=== PATIENT | male | born 1965 | race Caucasian/White ===

== ENCOUNTER 2020-05-20 08:48 | Emergency (ER) | payer BC ==
[2020-05-20] MEDS ORDERED: Metoprolol Tartrate 50 MG Tab PO STA (09:04)
[2020-05-20] MEDS ORDERED: Aspirin 81 MG Tab.Chew PO STA (09:04)
--- NOTE | 2020-05-20 10:03 | EDM.PDOC ---
ED HPI GENERAL MEDICAL PROBLEM - General Chief Complaint: Cardiovascular Problem Stated Complaint: TIGHT CHEST/HIGH HEART RATE Time Seen by Provider: 05/20/20 09:25 Source of Information: Reports: Patient History Limitations: Reports: No Limitations - History of Present Illness INITIAL COMMENTS - FREE TEXT/NARRATIVE: Patient presented to the ED because of palpitations and chest tightness which started this morning while at work. There is no associated headache, dizziness. No nausea,vomiting, dyspnea a or diaphoresis. There is no cough/cold, fever or chills. - Related Data Allergies Allergy/AdvReac Type Severity Reaction Status Date / Time NSAIDS (Non-Steroidal AdvReac Cannot Verified 05/20/20 09:57 Anti-Inflamma Remember Home Meds: Home Meds Furosemide 40 mg PO DAILY PRN 04/25/14 [History] Ibuprofen 200 mg PO ASDIRECTED PRN 04/25/14 [History] Losartan [Cozaar] 50 mg PO DAILY 05/20/20 [History] metFORMIN [Glucophage] 1,000 mg PO BID 05/20/20 [History] ED ROS GENERAL - Review of Systems Review Of Systems: See Below Constitutional: Reports: No Symptoms HEENT: Reports: No Symptoms Respiratory: Reports: No Symptoms Cardiovascular: Reports: Chest Pain Endocrine: Reports: No Symptoms GI/Abdominal: Reports: No Symptoms : Reports: No Symptoms Musculoskeletal: Reports: No Symptoms Skin: Reports: No Symptoms Neurological: Reports: No Symptoms Psychiatric: Reports: No Symptoms ED EXAM, GENERAL - Physical Exam Exam: See Below Exam Limited By: No Limitations General Appearance: Alert, No Apparent Distress Ears: Normal External Exam, Normal Canal Nose: Normal Inspection, Normal Mucosa, No Blood Throat/Mouth: Normal Inspection, Normal Lips, Normal Teeth Head: Atraumatic, Normocephalic Neck: Normal Inspection, Supple, Non-Tender, Full Range of Motion Respiratory/Chest: No Respiratory Distress, Lungs Clear, Normal Breath Sounds, No Accessory Muscle Use, Chest Non-Tender Cardiovascular: Normal Peripheral Pulses, Regular Rate, Rhythm, No Edema, No JVD, No Murmur, No Rub, Tachycardia GI/Abdominal: Normal Bowel Sounds, Soft, Non-Tender, No Organomegaly, No Distention, No Abnormal Bruit, No Mass, Pelvis Stable Back Exam: Normal Inspection, Full Range of Motion Extremities: Normal Inspection, Normal Range of Motion, Non-Tender, No Pedal Edema, Normal Capillary Refill Neurological: Alert, Oriented, CN II-XII Intact, Normal Cognition, Normal Gait, Normal Reflexes, No Motor/Sensory Deficits #1 Interpretation EKG Date: 05/20/20 Time: 09:35 Rhythm: NSR Rate (Beats/Min): 72 [place]: LAD-Left [place] Deviation P-Wave: Present QRS: Normal ST-T: Normal QT: Normal Comparison: NA - No Prior EKG Course - Vital Signs Text/Narrative:: Lba/EKG result was reviewed and discussed with patient ASA 324 mg PO x1 Metoprolol tartrate 50 mg PO x1 Last Recorded V/S: Last Vital Signs Temp 36.9 C 05/20/20 09:45 Pulse 74 05/20/20 10:00 Resp 18 05/20/20 10:00 BP 128/74 05/20/20 10:00 Pulse Ox 98 05/20/20 10:00 - Orders/Labs/Meds Orders: Active Orders 24 hr Category Date Time Status EKG 12 Lead [EK] Routine Ther 05/20/20 08:57 Ordered Labs: Laboratory Tests 05/20/20 05/20/20 05/20/20 Range/Units 09:10 09:10 09:10 WBC 7.5 (3.2-10.1) x10-3/uL RBC 5.25 (3.90-5.90) x10(6)uL Hgb 16.0 (12.9-17.7) g/dL Hct 47.0 (38.3-50.1) % MCV 89.4 (80.8-98.7) fL MCH 30.4 (27.0-33.3) pg MCHC 34.0 (28.7-35.3) g/dL RDW 13.0 (12.4-15.0) % Plt Count 297 (117-477) x10(3)uL MPV 7.8 (6.7-11.0) fL Neut % (Auto) 75.2 H (40.3-71.8) % Lymph % (Auto) 12.6 L (15.8-45.3) % [place] % (Auto) 8.3 (5.5-15.2) % Eos % (Auto) 3.3 (0.1-6.8) % Baso % (Auto) 0.6 (0.3-3.8) % Neut # (Auto) 5.6 (1.7-6.9) x10-3/uL Lymph # (Auto) 0.9 (0.5-4.5) x10-3/uL [place] # (Auto) 0.6 (0.0-1.2) x10-3/uL Eos # (Auto) 0.2 (0.0-0.6) x10-3/uL Baso # (Auto) 0.0 (0.0-0.3) x10-3/uL Sodium 139 (135-145) mmol/L Potassium 4.4 (3.5-5.3) mmol/L Chloride 101 (100-110) mmol/L Carbon Dioxide 24 (21-32) mmol/L BUN 13 (7-18) mg/dL Creatinine 1.1 (0.70-1.30) mg/dL Est Cr Clr Drug Dosing TNP Estimated GFR (MDRD) > 60 (>60) BUN/Creatinine Ratio 11.8 (9-20) Glucose 198 H (80-116) mg/dL Calcium 8.5 L (8.6-10.2) mg/dL Total Bilirubin 0.5 (0.1-1.3) mg/dL AST 32 H (5-25) IU/L ALT 58 H (12-36) U/L Alkaline Phosphatase 83 (56-112) IU/L Troponin I 5.6 (4.0-60.3) pg/mL Total Protein 7.0 (6.0-8.0) g/dL Albumin 3.4 L (3.5-5.2) g/dL Globulin 3.6 g/dL Albumin/Globulin Ratio 0.9 Meds: Medications Discontinued Medications Generic Name Dose Route Start Last Admin Trade Name Freq PRN Reason Stop Dose Admin Aspirin 324 mg 05/20/20 09:04 05/20/20 09:23 Aspirin 81 Mg Tab.Chew PO 05/20/20 09:05 324 mg NOW STA Administration Metoprolol Tartrate 50 mg 05/20/20 09:04 05/20/20 09:23 Metoprolol Tartrate 50 Mg Tab PO 05/20/20 09:05 50 mg NOW STA Administration Departure - Departure Time of Disposition: 10:05 Disposition: Home, Self-Care 01 Condition: Good Clinical Impression: Palpitations Instructions: Palpitations, [id number] Referrals: Oskar Kirk MD [Primary Care Provider] - Forms: ED Department Discharge Additional Instructions: Please read discharge instructions on palpitations Take your medicine for high blood pressure daily Follow up as needed Sepsis Event Note (ED) - Evaluation Sepsis Screening Result: No Definite Risk - My Orders Last 24 Hours: My Active Orders 05/20/20 08:57 EKG 12 Lead [EK] Routine - Assessment/Plan Last 24 Hours: My Active Orders 05/20/20 08:57 EKG 12 Lead [EK] Routine
[2020-05-20 13:31] VITALS: BP 128/74; PULSE 74
== END 2020-05-20 10:10 | disposition home or self-care (01) ==
LOC: FB.ED 08:48
DX: R00.2 Palpitations (principal); R07.89 Other chest pain; Z88.6 Allergy status to analgesic agent
CPT/HCPCS: 36415; 80053; 84484; 85025; 93005; 99285; A9270